=== PATIENT | male | born 1955 | race American Indian/Alaskan Native ===

== ENCOUNTER 2019-11-08 22:45 | Emergency (ER) | payer MEDICARE ==
[2019-11-09 01:07] LABS: Alanine Aminotransferase 30 units/L (7-56); Albumin 5.1 g/dL (3.9-5); BUN/Creatinine Ratio 23; Blood Urea Nitrogen 21 mg/dL (9-20); Calcium 10.3 mg/dL (8.4-10.2); Hemolysis Index 21
[2019-11-09 01:09] LABS: Basophils # (Auto) 0.1 K/mm3 (0.0-0.1); Basophils % (Auto) 1.7 % (0.0-1.8); Hematocrit 52.2 % (35.5-45.6); Hemoglobin 17.7 gm/dl (11.8-15.2); Lymphocytes # (Auto) 0.7 K/mm3 (1.2-5.4); Lymphocytes % (Auto) 7.7 % (13.4-35.0); Mean Corpuscular HGB Conc 34 % (32-34); Mean Corpuscular Volume 104 fl (84-94); Monocytes # (Auto) 0.4 K/mm3 (0.0-0.8); Monocytes % (Auto) 5.3 % (0.0-7.3); Platelet Count 218 K/mm3 (140-440); Red Blood Count 5.04 M/mm3 (3.65-5.03); Red Cell Distribution Width 14.9 % (13.2-15.2)
[2019-11-09] MEDS ORDERED: SODIUM CHLORIDE 0.9% 1000 ML 2,000 ML IV ONE (01:30)
[2019-11-09] MEDS ORDERED: diphenhydrAMINE 50 MG/ML VIAL IV ONE (01:30)
[2019-11-09] MEDS ORDERED: METOCLOPRAMIDE 10 MG/2 ML INJ IV ONE (01:30)
[2019-11-09] MEDS ORDERED: ACETAMINOPHEN 325 MG/10.15 ML ORAL LIQD UNIT DOSE PO ONE (01:31)
--- NOTE | 2019-11-09 01:32 | Emergency Department Report ---
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 He has a history of possible bullous emphysema. A few years ago, he had an abdominal surgery performed at [place], for an incidental intestinal abnormality identified at this facility on a CAT scan in 2014. He also reports that he had some sort of thoracic procedure in the distant past to help his lungs "to move better." He presents to the ER today with multiple complaints. He typically follows at the [facility]. He presents to the ER with a complaint of multiple episodes of nonbloody, nonbilious nausea vomiting and emesis, which started a few days ago, decreased bowel movements, he believes that he may have had black tarry stools yesterday, but is not sure, decrease in bowel movements, fever at home to 101 degrees, shortness of breath, and syncope/loss of consciousness. His first episode of loss of consciousness was 1 week ago. He does not remember what he was doing during the episode of loss of consciousness. He reports that he had a loss of consciousness yesterday, while in the shower. He denies recent travel, surgeries, oral contraceptive use, posterior leg pain or swelling. There is no complaint of neck pain, chest pain, focal extremity weakness or numbness. He also feels like his urine is "off." He feels like his symptoms are worsened when he attempts to eat or drink. -: Gradual, days(s) Location: abdomen Radiation: non-radiation Quality: aching Consistency: other Improves with: eating, rest - Related Data Home Medications Medication Instructions Recorded Confirmed Last Taken Docusate Sodium [Colace CAP] 100 mg PO BID 11/14/14 11/14/14 11/14/14 100 mg Esomeprazole Magnesium [NexIUM] 20 mg PO DAILY 11/14/14 11/14/14 11/14/14 20 mg Ferrous Sulfate [Ferosul] 325 mg PO DAILY 11/14/14 11/14/14 11/14/14 325 mg LORazepam 0.5 mg PO Q8HR PRN 11/14/14 11/14/14 11/14/14 0.5mg Previous Rx's Medication Instructions Recorded Last Taken Type Promethazine [Phenergan] 25 mg PO Q6H PRN #20 tablet 11/15/14 Unknown Rx Dicyclomine [Bentyl] 20 mg PO QID #30 tablet 03/03/16 Unknown Rx Promethazine [Phenergan TAB] 25 mg PO Q6HR PRN #20 tab 03/03/16 Unknown Rx Ondansetron [Zofran TAB] 4 mg PO Q8HR PRN #20 tablet 10/13/16 Unknown Rx Famotidine [Pepcid] 20 mg PO BID #60 tablet 11/09/19 Unknown Rx Ladan Root [Ladan] 250 mg PO QID PRN #30 capsule 11/09/19 Unknown Rx Metoclopramide [Reglan] 10 mg PO QID PRN #30 tablet 11/09/19 Unknown Rx Multivitamin with Folic Acid [[facility] 400 mcg PO QDAY #30 tablet 11/09/19 Unknown Rx One Daily Essential Tablet] Promethazine [Phenergan SUPPOS] 50 mg CO Q6H PRN #15 supp.rect 11/09/19 Unknown Rx Allergies Allergy/AdvReac Type Severity Reaction Status Date / Time No Known Allergies Allergy Unverified 11/14/14 17:06 ED Review of Systems ROS: Stated complaint: FEVER,N/V/D Other details as noted in HPI Constitutional: fever, malaise, weakness Eyes: denies: eye discharge ENT: denies: dental pain Respiratory: shortness of breath Cardiovascular: syncope Gastrointestinal: abdominal pain, nausea, vomiting, diarrhea, melena Genitourinary: other Musculoskeletal: as per HPI Skin: as per HPI Neurological: as per HPI, weakness Psychiatric: as per HPI Hematological/Lymphatic: as per HPI. denies: easy bleeding ED Past Medical Hx - Past Medical History Previous Medical History?: Yes Hx of Cancer: Yes (Lung and Bowel) Additional medical history: stomach and left lung Cancer (unknown); surgery 1 year ago to remove cancer - Surgical History Past Surgical History?: Yes Additional Surgical History: partial left pneumonectomy, partial gastrectomy - Social History Smoking Status: Never Smoker Substance Use Type: Marijuana - Medications Home Medications: Home Medications Medication Instructions Recorded Confirmed Last Taken Type Docusate Sodium [Colace CAP] 100 mg PO BID 11/14/14 11/14/14 11/14/14 History 100 mg Esomeprazole Magnesium [NexIUM] 20 mg PO DAILY 11/14/14 11/14/14 11/14/14 Hist ory 20 mg Ferrous Sulfate [Ferosul] 325 mg PO DAILY 11/14/14 11/14/14 11/14/14 History 325 mg LORazepam 0.5 mg PO Q8HR PRN 11/14/14 11/14/14 11/14/14 History 0.5mg Promethazine [Phenergan] 25 mg PO Q6H PRN #20 tablet 11/15/14 Unknown Rx Dicyclomine [Bentyl] 20 mg PO QID #30 tablet 03/03/16 Unknown Rx Promethazine [Phenergan TAB] 25 mg PO Q6HR PRN #20 tab 03/03/16 Unknown Rx Ondansetron [Zofran TAB] 4 mg PO Q8HR PRN #20 tablet 10/13/16 Unknown Rx Famotidine [Pepcid] 20 mg PO BID #60 tablet 11/09/19 Unknown Rx Ladan Root [Ladan] 250 mg PO QID PRN #30 capsule 11/09/19 Unknown Rx Metoclopramide [Reglan] 10 mg PO QID PRN #30 tablet 11/09/19 Unknown Rx Multivitamin with Folic Acid [[facility] 400 mcg PO QDAY #30 tablet 11/09/19 Unknown Rx One Daily Essential Tablet] Promethazine [Phenergan SUPPOS] 50 mg CO Q6H PRN #15 supp.rect 11/09/19 Unknown Rx ED Physical Exam - General Limitations: No Limitations General appearance: alert, anxious - Head Head exam: Present: atraumatic, normocephalic - Eye Eye exam: Present: normal appearance, PERRL, EOMI, other (Visual acuity intact to finger counting and color perception at a close distance). Absent: nystagmus - ENT ENT exam: Present: normal exam, normal orophraynx, mucous membranes moist, normal external ear exam - Neck Neck exam: Present: normal inspection, full ROM. Absent: tenderness, meningismus - Respiratory Respiratory exam: Present: normal lung sounds bilaterally. Absent: respiratory distress - Cardiovascular Cardiovascular Exam: Present: normal rhythm, tachycardia, normal heart sounds. Absent: systolic murmur, diastolic murmur, rubs, gallop - GI/Abdominal GI/Abdominal exam: Present: soft, tenderness, other (Minimal tenderness noted in the left lower quadrant, without rebound, guarding or peritoneal sign). Absent: distended, guarding, rebound, rigid, pulsatile mass - Rectal Rectal exam: Present: normal inspection, normal rectal tone, heme (-) stool, other (Chaperoned by nurse she barker). Absent: heme (+) stool, black stool, bloody stool, fecal impaction, hemorrhoids - exam: Present: normal inspection, other (Chaperoned by nurse she barker). Absent: testicular tenderness External exam: Present: normal external exam, other (There is normal testicular lie. There is normal cremasteric reflex. There is no testicular tenderness. There is no testicular swelling) - Extremities Exam Extremities exam: Present: normal inspection, full ROM, other (2+ pulses noted in the bilateral upper and lower extremities. There is no palpable cord. negative Homans sign. Muscular compartments are soft. The pelvis is stable.). Absent: pedal edema, joint swelling, calf tenderness - Back Exam Back exam: Present: normal inspection, full ROM. Absent: tenderness, CVA tenderness (R), CVA tenderness (L), paraspinal tenderness, vertebral tenderness - Neurological Exam Neurological exam: Present: alert, normal gait, other (There is no facial droop. The tongue is midline. Extraocular movements are intact bilaterally. There is 5 out of 5 strength in bilateral upper and lower extremities. Sensation is intact to light touch bilateral upper and lower extremities. There is no past- pointing. There is no pronator drift. There is a normal gait.) - Psychiatric Psychiatric exam: Present: anxious - Skin Skin exam: Present: warm, dry, intact, normal color. Absent: rash ED Course Vital Signs 11/08/19 11/09/19 11/09/19 23:25 01:27 01:30 Temperature 98.9 F Pulse Rate 104 H 72 Respiratory 18 29 H Rate Blood Pressure 138/93 142/87 Blood Pressure [Left] O2 Sat by Pulse 100 100 95 Oximetry 11/09/19 11/09/19 11/09/19 01:46 01:49 02:00 Temperature 98.5 F Pulse Rate 77 90 92 H Respiratory 24 23 21 Rate Blood Pressure 142/87 153/93 Blood Pressure 161/91 [Left] O2 Sat by Pulse 100 98 100 Oximetry 11/09/19 11/09/19 11/09/19 02:16 02:30 02:46 Temperature Pulse Rate 72 85 84 Respiratory 41 H 15 14 Rate Blood Pressure 153/93 139/88 139/88 Blood Pressure [Left] O2 Sat by Pulse 100 94 98 Oximetry 11/09/19 11/09/19 11/09/19 03:00 03:30 03:46 Temperature Pulse Rate 79 106 H 77 Respiratory 14 17 18 Rate Blood Pressure 127/80 127/80 111/89 Blood Pressure [Left] O2 Sat by Pulse 99 91 97 Oximetry 11/09/19 04:00 Temperature Pulse Rate 80 Respiratory 15 Rate Blood Pressure 149/86 Blood Pressure [Left] O2 Sat by Pulse 99 Oximetry - Reevaluation(s) Reevaluation #1: 11/09/19 02:42 Differential diagnosis, including but not limited to: Colitis, obstruction, diverticulitis, volvulus, cyclic vomiting syndrome, cannabinoid hyperemesis syndrome, dehydration, orthostasis, vagal event, pneumonia, pulmonary embolism, urinary tract infection Assessment and plan: 63-year-old gentleman with multiple complaints. In the emergency room, he is afebrile with reassuring vital signs. Rectal exam unremarkable, genital exam unremarkable, neurologic exam unremarkable, minimally tender in the left lower quadrant. He is very anxious. We have not witnessed any active vomiting. Screening laboratory studies are fairly unremarkable. EKG is fairly unremarkable except for left ventricular hypertrophy. Plain films of the chest and abdomen are fairly unremarkable. He is low risk by Wells criteria, not tachycardic at this time, not hypoxic, although given his complaint of syncope, shortness of breath, fever, d-dimer sent, elevated. CT scan of the chest will be obtained. CT scan of the abdomen pelvis will be obtained. He also complains of a headache which was bitemporal, not sudden or thunderclap in nature, not maximal in intensity. Given complaints of headache and syncope, noncontrast CT scan of the brain will be obtained. He does not describe the headache as the worst headache of his life. We will treat his symptoms. We will reassess once his data points have resulted. Reevaluation #2: 11/09/19 04:31 Patient is observed for hours without clinical deterioration. He has not vomited. He has not lost consciousness. CT scan of the brain, abdomen pelvis negative for emergent pathology, enteritis is suggested on CT scan abdomen pelvis. Urine toxicology screen does demonstrate the presence of marijuana metabolites. CT scan of the chest is pending at this time. He was given Carafate which he was reportedly able to tolerate Reevaluation #3: 11/09/19 04:36 CT scan of the chest is negative for acute disease ED Medical Decision Making - Lab Data Result diagrams: 11/09/19 00:25 11/09/19 00:25 Vital Signs 11/08/19 11/09/19 11/09/19 23:25 01:27 01:30 Temperature 98.9 F Pulse Rate 104 H 72 Respiratory 18 29 H Rate Blood Pressure 138/93 142/87 Blood Pressure [Left] O2 Sat by Pulse 100 100 95 Oximetry 11/09/19 11/09/19 11/09/19 01:46 01:49 02:00 Temperature 98.5 F Pulse Rate 77 90 92 H Respiratory 24 23 21 Rate Blood Pressure 142/87 153/93 Blood Pressure 161/91 [Left] O2 Sat by Pulse 100 98 100 Oximetry 11/09/19 11/09/19 02:16 02:30 Temperature Pulse Rate 72 85 Respiratory 41 H 15 Rate Blood Pressure 153/93 139/88 Blood Pressure [Left] O2 Sat by Pulse 100 94 Oximetry Lab Results 11/08/19 11/09/19 11/09/19 Range/Units 01:31 00:25 00:25 WBC 8.4 (4.5-11.0) K/mm3 RBC 5.04 H (3.65-5.03) M/mm3 Hgb 17.7 H (11.8-15.2) gm/dl Hct 52.2 H (35.5-45.6) % MCV 104 H (84-94) fl MCH 35 H (28-32) pg MCHC 34 (32-34) % RDW 14.9 (13.2-15.2) % Plt Count 218 (140-440) K/mm3 Lymph % (Auto) 7.7 L (13.4-35.0) % [place] % (Auto) 5.3 (0.0-7.3) % Eos % (Auto) 0.0 (0.0-4.3) % Baso % (Auto) 1.7 (0.0-1.8) % Lymph # 0.7 L (1.2-5.4) K/mm3 [place] # 0.4 (0.0-0.8) K/mm3 Eos # 0.0 (0.0-0.4) K/mm3 Baso # 0.1 (0.0-0.1) K/mm3 Seg Neutrophils % 85.3 H (40.0-70.0) % Seg Neutrophils # 7.2 (1.8-7.7) K/mm3 PT (12.2-14.9) Sec. INR (0.87-1.13) APTT (24.2-36.6) Sec. D-Dimer (0-234) ng/mlDDU Sodium 141 (137-145) mmol/L Potassium 4.7 (3.6-5.0) mmol/L Chloride 97.2 L (98-107) mmol/L Carbon Dioxide 21 L (22-30) mmol/L Anion Gap 28 mmol/L BUN 21 H (9-20) mg/dL Creatinine 0.9 (0.8-1.5) mg/dL Estimated GFR > 60 ml/min BUN/Creatinine Ratio 23 % Glucose 109 H (75-100) mg/dL Calcium 10.3 H (8.4-10.2) mg/dL Total Bilirubin 1.30 H (0.1-1.2) mg/dL AST 49 H (5-40) units/L ALT 30 (7-56) units/L Alkaline Phosphatase 66 (35-129) units/L Total Protein 7.6 (6.3-8.2) g/dL Albumin 5.1 H (3.9-5) g/dL Albumin/Globulin Ratio 2.0 % Lipase 15 (13-60) units/L Urine Color Yellow (Yellow) Urine Turbidity Clear (Clear) Urine pH 5.0 (5.0-7.0) Ur Specific Keeler 1.019 (1.003-1.030) Urine Protein <15 mg/dl (Negative) mg/dL Urine Glucose (UA) Neg (Negative) mg/dL Urine Ketones 80 (Negative) mg/dL Urine Blood Neg (Negative) Urine Nitrite Neg (Negative) Urine Bilirubin Neg (Negative) Urine Urobilinogen < 2.0 (<2.0) mg/dL Ur Leukocyte Esterase Neg (Negative) Urine WBC (Auto) 1.0 (0.0-6.0) /HPF Urine RBC (Auto) 2.0 (0.0-6.0) /HPF U Epithel Cells (Auto) < 1.0 (0-13.0) /HPF Urine Mucus Few /HPF Urine Opiates Screen Urine Methadone Screen Ur Barbiturates Screen Ur Phencyclidine Scrn Ur Amphetamines Screen U Benzodiazepines Scrn Urine Cocaine Screen U Marijuana (THC) Screen Drugs of Abuse Note 11/09/19 11/09/19 Range/Units 01:31 01:42 WBC (4.5-11.0) K/mm3 RBC (3.65-5.03) M/mm3 Hgb (11.8-15.2) gm/dl Hct (35.5-45.6) % MCV (84-94) fl MCH (28-32) pg MCHC (32-34) % RDW (13.2-15.2) % Plt Count (140-440) K/mm3 Lymph % (Auto) (13.4-35.0) % [place] % (Auto) (0.0-7.3) % Eos % (Auto) (0.0-4.3) % Baso % (Auto) (0.0-1.8) % Lymph # (1.2-5.4) K/mm3 [place] # (0.0-0.8) K/mm3 Eos # (0.0-0.4) K/mm3 Baso # (0.0-0.1) K/mm3 Seg Neutrophils % (40.0-70.0) % Seg Neutrophils # (1.8-7.7) K/mm3 PT 12.6 (12.2-14.9) Sec. INR 0.93 (0.87-1.13) APTT 27.5 (24.2-36.6) Sec. D-Dimer 270.71 H (0-234) ng/mlDDU Sodium (137-145) mmol/L Potassium (3.6-5.0) mmol/L Chloride (98-107) mmol/L Carbon Dioxide (22-30) mmol/L Anion Gap mmol/L BUN (9-20) mg/dL Creatinine (0.8-1.5) mg/dL Estimated GFR ml/min BUN/Creatinine Ratio % Glucose (75-100) mg/dL Calcium (8.4-10.2) mg/dL Total Bilirubin (0.1-1.2) mg/dL AST (5-40) units/L ALT (7-56) units/L Alkaline Phosphatase (35-129) units/L Total Protein (6.3-8.2) g/dL Albumin (3.9-5) g/dL Albumin/Globulin Ratio % Lipase (13-60) units/L Urine Color (Yellow) Urine Turbidity (Clear) Urine pH (5.0-7.0) Ur Specific Keeler (1.003-1.030) Urine Protein (Negative) mg/dL Urine Glucose (UA) (Negative) mg/dL Urine Ketones (Negative) mg/dL Urine Blood (Negative) Urine Nitrite (Negative) Urine Bilirubin (Negative) Urine Urobilinogen (<2.0) mg/dL Ur Leukocyte Esterase (Negative) Urine WBC (Auto) (0.0-6.0) /HPF Urine RBC (Auto) (0.0-6.0) /HPF U Epithel Cells (Auto) (0-13.0) /HPF Urine Mucus /HPF Urine Opiates Screen Presumptive negative Urine Methadone Screen Presumptive negative Ur Barbiturates Screen Presumptive negative Ur Phencyclidine Scrn Presumptive negative Ur Amphetamines Screen Presumptive negative U Benzodiazepines Scrn Presumptive negative Urine Cocaine Screen Presumptive negative U Marijuana (THC) Screen Presumptive positive Drugs of Abuse Note Disclamer - EKG Data -: EKG Interpreted by Hi EKG shows normal: sinus rhythm Rate: normal - EKG Data 11/09/19 02:44 Sinus rhythm, 80 bpm, normal axis, left ventricular hypertrophy, QTC prolonged, abnormal EKG, there is no prior for comparison, this is not a STEMI - Radiology Data Radiology results: report reviewed, image reviewed Print Report Referring Physician: CAL SWANN Patient Name: EDER GIMENEZ Date of : 1955 Sex: Male Report Date: 2019-11-09 Report Status: Finalized Findings [facility] [address] [place] [address] XRay Report Signed Patient: EDER GIMENEZ MR#: [id number] : 1955 Acct:[id number] Age/Sex: 63 / M ADM Date: 11/08/19 Loc: ED Attending Dr: Ordering Physician: CAL SWANN MD Date of Service: 11/09/19 Procedure(s): XR abd series w cxr 1V Accession Number(s): [id number] cc: ACL SWANN MD Fluoro Time In Minutes: ABDOMINAL SERIES WITH CHEST X-RAY, 3 VIEWS INDICATION / CLINICAL INFORMATION: sob fever llq abd pain. COMPARISON: 10/13/2016 FINDINGS: Accompanying PA view of the chest shows the lungs to be hyperinflated with prominent bullous disease throughout the right upper lobe. No acute superimposed pulmonary disease noted. Bowel gas pattern is grossly normal. No free air. Surgical sutures are seen in the left upper quadrant. No acute osseous abnormality. IMPRESSION: 1. No acute finding within the abdomen or chest. Signer Name: Jany Martinez MD Signed: 11/09/2019 2:09 AM Workstation Name: [email or web address] Transcribed By: JR Dictated By: Jany Martinez MD Electronically Authenticated By: Jany Martinez MD Signed Date/Time: 11/09/19208 DD/ 020 Print Report Referring Physician: RAMOS ZUÑIGA Patient Name: EDER GIMENEZ Date of : 1955 Sex: Male Report Date: 2016-03-03 Report Status: [place] [address] Cat Scan Report Signed Patient: EDER GIMENEZ MR#: [id number] : 1955 Acct:[id number] Age/Sex: 60 / M ADM Date: 03/03/16 Loc: ED Attending Dr: Ordering Physician: RAMOS ZUÑIGA MD Date of Service: 03/03/16 Procedure(s): CT abdomen pelvis w con Accession Number(s): [id number] cc: RAMOS ZUÑIGA MD CT ABDOMEN PELVIS WITH CONTRAST History: Abdominal pain, gastric cancer. Comparison: 11/15/14. Technique: Helical CT following IV and oral contrast. Sagittal and coronal reformatted images. Findings: An approximate 10 cm mass has been removed from the mesentery since 11/15/14 exam, correlate with history. There is no obvious recurrent mass in the abdomen or pelvis. No adeno caroline or solid organ lesions suspicious for metastasis is appreciated. There is a mild degree of pelvic ascites. A few small bowel loops in the left abdomen appear edematous. This could represent an enteritis. There is no evidence for obstruction, pneumatosis or free air. Normal appendix. Scattered tiny liver cysts and right hepatic lobe cavernous hemangioma are unchanged. The biliary system, pancreas, spleen, kidneys and adrenal glands remain unremarkable. Solitary bilateral renal cysts measuring up to 2 cm are unchanged. The aorta is normal caliber. The IVC and portal venous system are patent. Normal heart size. Clear lung bases. No suspicious bony lesion is appreciated. Impression: Correl ate for a mild enteritis. See above. Scattered liver cysts and right hepatic lobe cavernous hemangioma, stable. Renal cysts, stable. Surgical changes as described. No evidence for recurrent or metastatic disease. Transcribed By: TTR Dictated By: RAZIA JACK JR, MD Electronically Authenticated By: RAZIA JACK JR, MD Signed Date/Time: 03/03/16 1215 DD/ 1212 TD/TT: 03/03/16 1215 Visualized lower thorax: No significant abnormality. Liver: There is a probable hemangioma in the posterior segment of the RIGHT lobe of liver measuring 2.6 cm. Spleen: Normal size and attenuation. Gallbladder and biliary system: Normal. Pancreas: Normal. Adrenals: Normal. Kidneys: There are cysts in the kidneys. There is NO nephrolithiasis or obstructive uropathy. GI tract: The stomach is unremarkable. There is a dilated portion of the mid small bowel measuring 9.3 x 9.7 cm. There is NO mechanical obstruction. This could be focal dilatation associated with prior surgery. However, possibility of intraluminal tumor cannot be excluded. Small bowel follow-through examination may be helpful. The colon is unremarkable. There is NO colonic obstruction or mass, colitis or diverticulitis. The appendix is NORMAL. Lymph nodes and mesentery: Normal. Vasculature: Normal. Bladder: Normal. Reproductive organs: Normal. Peritoneum: No free fluid. Musculoskeletal structures: No significant abnormality. IMPRESSION: THERE IS A PROBABLE HEMANGIOMA IN THE POSTERIOR SEGMENT OF THE RIGHT LOBE OF LIVER MEASURING 2.6 CM. THERE ARE CYSTS IN THE KIDNEYS. THERE IS NO NEPHROLITHIASIS OR OBSTRUCTIVE UROPATHY. THERE IS A DILATED PORTION OF THE MID SMALL BOWEL MEASURING 9.3 X 9.7 CM. THERE IS NO MECHANICAL OBSTRUCTION. THIS COULD BE FOCAL DILATATION ASSOCIATED WITH PRIOR SURGERY. HOWEVER, POSSIBILITY OF INTRALUMINAL TUMOR CANNOT BE EXCLUDED. SMALL BOWEL FOLLOW-THROUGH EXAMINATION MAY BE HELPFUL. THE COLON IS UNREMARKABLE. THERE IS NO COLONIC OBSTRUCTION OR MASS, COLITIS OR DIVERTICULITIS. THE APPENDIX IS NORMAL. THERE IS NO ASCITES, FREE AIR, ABSCESS OR ADENOPATHY. Print Report Referring Physician: CAL SWANN Patient Name: EDER GIMENEZ Date of : 1955 Sex: Male Report Date: 2019-11-09 Report Status: Finalized Findings [facility] [address] [id number] Cat Scan Report Signed Patient: EDER GIMENEZ MR#: [id number] : 1955 Acct:[id number] Age/Sex: 63 / M ADM Date: 11/08/19 Loc: ED Attending Dr: Ordering Physician: CAL SWANN MD Date of Service: 11/09/19 Procedure(s): CT abdomen pelvis w con Accession Number(s): [id number] cc: CAL SWANN MD CT abdomen pelvis w con INDICATION / CLINICAL INFORMATION: MAIN: abd pain n/v, syncope, fever. 100 ml Omnipaque 350. TECHNIQUE: Axial CT imaging of abdomen and pelvis was obtained IV contrast. Coronal and sagittal reformatted imaging obtained and reviewed. All CT scans at this location are performed using CT dose reduction for ALARA by means of automated exposure control. COMPAR DESIREE: Prior CT, 03/03/2016 FINDINGS: CT abdomen with contrast demonstrates a few small simple cysts scattered throughout the liver. The liver is otherwise unremarkable. Spleen, pancreas, gallbladder, and adrenal glands appear unremarkable. There are a few small simple cyst in both kidneys. Otherwise the kidneys are unremarkable. No solid mass or hydronephrosis. There is mild dilatation of the common bile duct measuring 8 mm. No definite acute obstructive lesion identified. CT pelvis with contrast demonstrates several slightly prominent fluid-filled loops of small bowel. This is nonspecific but could be related to enteritis if clinical symptoms correlate. No focal mass, free fluid, or inflammatory changes noted. A normal appendix is present. Prostate gland is mildly enlarged. Visualized lung bases bases are clear. No acute significant osseous abnormality.. IMPRESSION: 1. Possible mild enteritis. Please correlate with clinical symptoms/presentation. 2. Mild dilatation of the common bile duct without definitive obstructing lesion identified. Please correlate with liver enzymes. Signer Name: Jany Martinez MD Signed: 11/09/2019 4:25 AM Workstation Name: [employer] Transcribed By: JR Dictated By: Jayn Martinez MD Electronically Authenticated By: Jany Martinez MD Signed Date/Time: 11/09/195 DD/ 3 Print Report Referring Physician: CAL SWANN Patient Name: EDER GIMENEZ Date of : 1955 Sex: Male Report Date: 2019-11-09 Report Status: [place] [address] Cat Scan Report Signed Patient: EDER GIMENEZ MR#: [id number] : 1955 Acct:[id number] Age/Sex: 63 / M ADM Date: 11/08/19 Loc: ED Attending Dr: Ordering Physician: CAL SWANN MD Date of Service: 11/09/19 Procedure(s): CT head/brain wo con Accession Number(s): [id number] cc: CAL SWANN MD CT head/brain wo con INDICATION / CLINICAL INFORMATION: MAIN: headache, syncope. TECHNIQUE: Axial CT imaging of the brain was obtained without contrast. Coronal and sagittal reformatted imaging obtained and reviewed. All CT scans at this location are performed using CT dose reduction for ALARA by means of automated exposure control. COMPARISON: None available. FINDINGS: No intracranial hemorrhage, mass, or midline shift. No extra-axial fluid collection or suggestion of acute territorial infarction. Ventricular system and basilar cisterns are unremarkable. Mild cerebral atrophy is present. Visualized parana ally sinuses and mastoid air cells are well aerated and clear. No calvarial fracture identified. IMPRESSION: 1. No acute intracranial abnormality. Signer Name: Jany Martinez MD Signed: 11/09/2019 4:10 AM Workstation Name: [id number] Transcribed By: JR Dictated By: Jany Martinez MD Electronically Authenticated By: Jany Martinez MD Signed Date/Time: 11/09/19409 DD/ 7 Critical care attestation.: If time is entered above; I have spent that time in minutes in the direct care of this critically ill patient, excluding procedure time. ED Disposition Clinical Impression: History of syncope, History of nausea and vomiting, History of headache, History of shortness of breath, History of abdominal pain, History of marijuana use Disposition: - TO HOME OR SELFCARE Is pt being admited?: No Does the pt Need Aspirin: No Condition: Stable Additional Instructions: Avoid consumption of marijuana, alcohol, and tobacco products. Do not drive or operate motor vehicles until her primary care doctor or jewel staker clears the patient to do so. Advance diet as tolerated, drink plenty of fluids, take the pain medication, nausea medications as needed and directed. Do not take metformin medication for the next 2 days, if patient takes this medication. Please follow-up with your primary care doctor or jewel staker for loss of consciousness within the next 3 to 5 days. Please follow-up with a primary care doctor for complaint of shortness of breath, fever, abdominal pain, nausea/vomiting within the next 3 to 5 days. Symptoms are most likely coming from viral syndrome, possibly worsened by concomitant marijuana use/exposure. Recommend that patient discontinue exposure to marijuana or stop using marijuana as this is likely a significant contributing factor to symptoms. For symptoms of nausea and vomiting, patient may use ladan tablets, alternating with Reglan prescription as directed. For intractable nausea/vomiting, not relieved by the aforementioned oral medications, patient may use the Phenergan suppository. If using the suppository, wait at least 1 hour after taking Reglan medication before administering suppository. Take the prescribed pain medications as needed and directed Referrals: GERTRUDE COLON MD [Primary Care Provider] - 3-5 Days SANDY REY MD [Staff Physician] - 3-5 Days [facility] [Provider Group] - 3-5 Days [facility] [Provider Group] - 3-5 Days
[2019-11-09 01:53] LABS: Bilirubin,Urine NEG (Negative); Blood,Urine NEG (Negative); Color,Urine Yellow (Yellow); Mucus,Urine FEW /HPF; Protein,Urine <15 mg/dL mg/dL (Negative); Urobilinogen,Urine < 2.0 mg/dL (<2.0)
[2019-11-09 02:00] LABS: Amphetamine Screen,Urine PRESUMPTIVE NEGATIVE; Benzodiazepines Screen,Urine PRESUMPTIVE NEGATIVE; Cocaine Screen,Urine PRESUMPTIVE NEGATIVE; Methadone Screen,Urine PRESUMPTIVE NEGATIVE; Opiate Screen,Urine PRESUMPTIVE NEGATIVE
[2019-11-09 02:14] LABS: Cannabinoid Screen,Urine PRESUMPTIVE POSITIVE
--- NOTE | 2019-11-09 02:14 | XRay Report ---
ABDOMINAL SERIES WITH CHEST X-RAY, 3 VIEWS INDICATION / CLINICAL INFORMATION: sob fever llq abd pain. COMPARISON: 10/13/2016 FINDINGS: Accompanying PA view of the chest shows the lungs to be hyperinflated with prominent bullous disease throughout the right upper lobe. No acute superimposed pulmonary disease noted. Bowel gas pattern is grossly normal. No free air. Surgical sutures are seen in the left upper quadran t. No acute osseous abnormality. IMPRESSION: 1. No acute finding within the abdomen or chest. Signer Name: Jany Martinez MD Signed: 11/09/2019 2:09 AM Workstation Name: [id number]
[2019-11-09 02:17] LABS: INR 0.93 (0.87-1.13); Partial Thromboplastin Time 27.5 Sec. (24.2-36.6)
[2019-11-09] MEDS ORDERED: SUCRALFATE 1 GM/10 ML ORAL LIQD ONE (03:45)
[2019-11-09] MEDS ORDERED: SUCRALFATE 1 GM/10 ML ORAL LIQD PO ONE (04:00)
[2019-11-09 04:08] VITALS: BP 149/86
--- NOTE | 2019-11-09 04:15 | Cat Scan Report ---
CT head/brain wo con INDICATION / CLINICAL INFORMATION: MAIN: headache, syncope. TECHNIQUE: Axial CT imaging of the brain was obtained without contrast. Coronal and sagittal reformatted imaging obtained and reviewed. All CT scans at this location are performed using CT dose reduction for ALAR A by means of automated exposure control. COMPARISON: None available. FINDINGS: No intracranial hemorrhage, mass, or midline shift. No extra-axial fluid collection or suggestion of acute territorial infarction. Ventricular system and basilar cisterns are unremarkable. Mild cerebral atrophy is present. Visualized paranasal sinuses and mastoid air cells are well aerated and clear. No calvarial fracture identified. IMPRESSION: 1. No acute intracranial abnormality. Signer Name: Jany Martinez MD Signed: 11/09/2019 4:10 AM Workstation Name: [id number]
--- NOTE | 2019-11-09 04:29 | Cat Scan Report ---
CT abdomen pelvis w con INDICATION / CLINICAL INFORMATION: MAIN: abd pain n/v, syncope, fever. 100 ml Omnipaque 350. TECHNIQUE: Axial CT imaging of abdomen and pelvis was obtained IV contrast. Coronal and sagittal reformatted una ging obtained and reviewed. All CT scans at this location are performed using CT dose reduction for ALARA by means of automated exposure control. COMPARISON: Prior CT, 03/03/2016 FINDINGS: CT abdomen with contrast demonstrates a few small simple cysts scattered throughout the liver. The li bernadette is otherwise unremarkable. Spleen, pancreas, gallbladder, and adrenal glands appear unremarkable. There are a few small simple cyst in both kidneys. Otherwise the kidneys are unremarkable. No solid mass or hydronephrosis. There is mild dilatation of the common bile duct measuring 8 mm. No definite acute obstructive lesion identified. CT pelvis with contrast demonstrates several slightly prominent fluid-filled loops of small bowel. Th is is nonspecific but could be related to enteritis if clinical symptoms correlate. No focal mass, fr ee fluid, or inflammatory changes noted. A normal appendix is present. Prostate gland is mildly enlar ged. Visualized lung bases bases are clear. No acute significant osseous abnormality.. IMPRESSION: 1. Possible mild enteritis. Please correlate with clinical symptoms/presentation. 2. Mild dilatation of the common bile duct without definitive obstructing lesion identified. Please c orrelate with liver enzymes. Signer Name: Jany Martinez MD Signed: 11/09/2019 4:25 AM Workstation Name: [email or web address]
--- NOTE | 2019-11-09 04:32 | Cat Scan Report ---
CTA CHEST WITH IV CONTRAST INDICATION / CLINICAL INFORMATION: MAIN: Syncope, fever, sob, + d dimer. 100 ML OMNIPAQUE 350. TECHNIQUE: Axial CT images were obtained through the chest after injection of 100 mL IV contrast. 3 plane MIP an d/or 3D reconstructions were produced. All CT scans at this location are performed using CT dose redu ction for [facility] by means of automated exposure control. COMPARISON: Abdomen/chest radiographs from earlier today. FINDINGS: PULMONARY ARTERIES: No pulmonary emboli. THORACIC AORTA: No significant abnormality. HEART: No significant abnormality. CORONARY ARTERIES: No significant calcification. PLEURA: No pleural effusion. No pneumothorax. LYMPH NODES: No significant adenopathy. LUNGS: There is significant bullous disease throughout the right upper lobe. No acute pulmonary or pl eural disease identified. No evidence of pneumonia or mass. ADDITIONAL FINDINGS: None. UPPER ABDOMEN: No acute findings. SKELETAL STRUCTURES: No significant osseous abnormality. IMPRESSION: 1. No CT evidence for pulmonary embolism. 2. Significant bullous disease throughout the right upper lobe. No acute pulmonary or pleural disease . Signer Name: Jany Martinez MD Signed: 11/09/2019 4:28 AM Workstation Name: [id number]
== END 2019-11-09 04:53 | disposition home or self-care (01) ==
LOC: ED 22:45
DX: R55 Syncope and collapse (principal); R11.2 Nausea with vomiting, unspecified; R06.02 Shortness of breath; F12.10 Cannabis abuse, uncomplicated; R10.9 Unspecified abdominal pain; Z98.890 Other specified postprocedural states; Z79.899 Other long term (current) drug therapy; Z85.118 Personal history of other malignant neoplasm of bronchus and lung
CPT/HCPCS: 36415; 70450; 71275; 74022; 74177; 80053; 80307; 81001; 82271; 82550; 83690; 83735; 85025; 85379; 85610; 85730; 93005; 93010; 96361; 96374; 96375; 99284; J1200; J2765; J7030; Q9967

== ENCOUNTER 2021-08-22 11:59 | Emergency (ER) | payer MEDICARE, MEDICAID ==
[2021-08-22] MEDS ORDERED: guaiFENesin DM 200/20 MG ORAL LIQD 10 ML PO ONE (15:01)
[2021-08-22] MEDS ORDERED: HYDROcodone/ACETAMINOPHEN 5-325 MG TAB PO ONE (15:01)
[2021-08-22 15:14] VITALS: BP 144/83
[2021-08-22 15:21] LABS: Bilirubin,Urine NEG (Negative); Blood,Urine NEG (Negative); Color,Urine Yellow (Yellow); Mucus,Urine 2+ /HPF; Protein,Urine <15 mg/dL mg/dL (Negative)
--- NOTE | 2021-08-22 15:27 | XRay Report ---
XR chest routine 2V INDICATION / CLINICAL INFORMATION: SOB, cough, CP. COMPARISON: 11/09/2019 FINDINGS: SUPPORT DEVICES: None. HEART /PULMONARY VASCULATURE: No significant abnormality. LUNGS / PLEURA: Severe bullous disease with postsurgical changes of the right upper hemithorax. Patch y airspace consolidation of the left lower lobe. No pneumothorax. ADDITIONAL FINDINGS: No significant additional findings. IMPRESSION: Left lower lobe pneumonia. Signer Name: Ulisses Batres MD Signed: 08/22/2021 3:23 PM Workstation Name: [id number]
[2021-08-22] MEDS ORDERED: cefTRIAXone/NS 2 GM/100 ML 2 GM/100 ML BAG IV ONE (15:34)
[2021-08-22 15:42] LABS: Basophils # (Auto) 0.1 K/mm3 (0.0-0.1); Basophils % (Auto) 0.6 % (0.0-1.8); Eosinophils % (Auto) 0.3 % (0.0-4.3); Hematocrit 44.1 % (35.5-45.6); Hemoglobin 15.2 gm/dl (11.8-15.2); Lymphocytes # (Auto) 0.8 K/mm3 (1.2-5.4); Lymphocytes % (Auto) 7.2 % (13.4-35.0); Mean Corpuscular HGB Conc 34 % (32-34); Mean Corpuscular Volume 102 fl (84-94); Monocytes # (Auto) 0.9 K/mm3 (0.0-0.8); Monocytes % (Auto) 8.3 % (0.0-7.3); Platelet Count 403 K/mm3 (140-440); Red Blood Count 4.31 M/mm3 (3.65-5.03); Red Cell Distribution Width 13.8 % (13.2-15.2)
[2021-08-22 16:05] LABS: INR 0.96 (0.87-1.13)
[2021-08-22 16:06] LABS: Alanine Aminotransferase 25 units/L (7-56); Albumin 3.7 g/dL (3.9-5); Blood Urea Nitrogen 14 mg/dL (9-20); Calcium 9.4 mg/dL (8.4-10.2); Hemolysis Index 280; Partial Thromboplastin Time 28.6 Sec. (24.2-36.6)
[2021-08-22 16:07] LABS: BUN/Creatinine Ratio 20
--- NOTE | 2021-08-22 16:08 | Emergency Department Report ---
ED General Adult HPI - General Chief complaint: Dyspnea/Respdistress Stated complaint: JOINT PAIN Time Seen by Provider: 08/22/21 14:50 Source: patient Mode of arrival: Ambulatory Limitations: No Limitations - History of Present Illness Initial comments: Patient is a 65-year-old male presents emergency room complaints of a productive cough for 2 months. He has associated yellow-green sputum with black specks present. He denies any hemoptysis. He has associated shortness of breath, chest pain, pain in his ribs, pain in his back, pleuritic pain. He denies any fever, vomiting, diarrhea, leg swelling, calf pain. He has a past medical history of lung cancer with lobectomy 6 years ago. He is a former heavy smoker and quit 6 years ago. No allergies to medications. Severity scale (0 -10): 10 - Related Data Home Medications Medication Instructions Recorded Confirmed Last Taken Docusate Sodium [Colace CAP] 100 mg PO BID 11/14/14 11/14/14 11/14/14 100 mg Esomeprazole Magnesium [NexIUM] 20 mg PO DAILY 11/14/14 11/14/14 11/14/14 20 mg Ferrous Sulfate [Ferosul] 325 mg PO DAILY 11/14/14 11/14/14 11/14/14 325 mg LORazepam 0.5 mg PO Q8HR PRN 11/14/14 11/14/14 11/14/14 0.5mg Previous Rx's Medication Instructions Recorded Last Taken Type Promethazine [Phenergan] 25 mg PO Q6H PRN #20 tablet 11/15/14 Unknown Rx Dicyclomine [Bentyl] 20 mg PO QID #30 tablet 03/03/16 Unknown Rx Promethazine [Phenergan TAB] 25 mg PO Q6HR PRN #20 tab 03/03/16 Unknown Rx Ondansetron [Zofran TAB] 4 mg PO Q8HR PRN #20 tablet 10/13/16 Unknown Rx Famotidine [Pepcid] 20 mg PO BID #60 tablet 11/09/19 Unknown Rx Gaby Root [Gaby] 250 mg PO QID PRN #30 capsule 11/09/19 Unknown Rx Metoclopramide [Reglan] 10 mg PO QID PRN #30 tablet 11/09/19 Unknown Rx Multivitamin with Folic Acid [Cvs 400 mcg PO QDAY #30 tablet 11/09/19 Unknown Rx One Daily Essential Tablet] Promethazine [Phenergan SUPPOS] 50 mg IA Q6H PRN #15 supp.rect 11/09/19 Unknown Rx Benzonatate [Tessalon Perles] 100 mg PO Q8HR PRN #12 capsule 08/22/21 Unknown Rx guaiFENesin ER [Mucinex ER] 600 mg PO Q12H #14 tablet.er 08/22/21 Unknown Rx levoFLOXacin [Levaquin] 750 mg PO QDAY #10 tablet 08/22/21 Unknown Rx traMADoL [Ultram 50 MG tab] 50 mg PO Q6HR PRN #12 tablet 08/22/21 Unknown Rx Allergies Allergy/AdvReac Type Severity Reaction Status Date / Time No Known Allergies Allergy Verified 08/22/21 13:16 ED Review of Systems ROS: Stated complaint: JOINT PAIN Other details as noted in HPI Comment: All other systems reviewed and negative ED Past Medical Hx - Past Medical History Hx of Cancer: Yes Additional medical history: stomach and left lung Cancer (unknown); surgery 1 year ago to remove cancer - Surgical History Additional Surgical History: partial left pneumonectomy, partial gastrectomy - Social History Smoking Status: Never Smoker Substance Use Type: Marijuana - Medications Home Medications: Home Medications Medication Instructions Recorded Confirmed Last Taken Type Docusate Sodium [Colace CAP] 100 mg PO BID 11/14/14 11/14/14 11/14/14 History 100 mg Esomeprazole Magnesium [NexIUM] 20 mg PO DAILY 11/14/14 11/14/14 11/14/14 History 20 mg Ferrous Sulfate [Ferosul] 325 mg PO DAILY 11/14/14 11/14/14 11/14/14 History 325 mg LORazepam 0.5 mg PO Q8HR PRN 11/14/14 11/14/14 11/14/14 History 0.5mg Promethazine [Phenergan] 25 mg PO Q6H PRN #20 tablet 11/15/14 Unknown Rx Dicyclomine [Bentyl] 20 mg PO QID #30 tablet 03/03/16 Unknown Rx Promethazine [Phenergan TAB] 25 mg PO Q6HR PRN #20 tab 03/03/16 Unknown Rx Ondansetron [Zofran TAB] 4 mg PO Q8HR PRN #20 tablet 10/13/16 Unknown Rx Famotidine [Pepcid] 20 mg PO BID #60 tablet 11/09/19 Unknown Rx Gaby Root [Gaby] 250 mg PO QID PRN #30 capsule 11/09/19 Unknown Rx Metoclopramide [Reglan] 10 mg PO QID PRN #30 tablet 11/09/19 Unknown Rx Multivitamin with Folic Acid [[facility] 400 mcg PO QDAY #30 tablet 11/09/19 Unknown Rx One Daily Essential Tablet] Promethazine [Phenergan SUPPOS] 50 mg IA Q6H PRN #15 supp.rect 11/09/19 Unknown Rx Benzonatate [Tessalon Perles] 100 mg PO Q8HR PRN #12 capsule 08/22/21 Unknown Rx guaiFENesin ER [Mucinex ER] 600 mg PO Q12H #14 tablet.er 08/22/21 Unknown Rx levoFLOXacin [Levaquin] 750 mg PO QDAY #10 tablet 08/22/21 Unknown Rx traMADoL [Ultram 50 MG tab] 50 mg PO Q6HR PRN #12 tablet 08/22/21 Unknown Rx ED Physical Exam - General Limitations: No Limitations General appearance: alert, in no apparent distress - Head Head exam: Present: atraumatic, normocephalic - Eye Eye exam: Present: normal appearance - ENT ENT exam: Present: mucous membranes moist - Respiratory Respiratory exam: Absent: respiratory distress, wheezes, rales, rhonchi, stridor, accessory muscle use, prolonged expiratory - Cardiovascular Cardiovascular Exam: Present: regular rate, normal rhythm - Neurological Exam Neurological exam: Present: alert, oriented X3 - Psychiatric Psychiatric exam: Present: normal affect, normal mood - Skin Skin exam: Present: warm, dry, intact ED Course Vital Signs 08/22/21 08/22/21 08/22/21 13:12 15:10 15:34 Temperature 98.3 F Pulse Rate 91 H 80 Respiratory 16 14 14 Rate Blood Pressure 121/77 Blood Pressure 144/83 [Left] O2 Sat by Pulse 97 100 Oximetry ED Medical Decision Making - Lab Data Result diagrams: 08/22/21 15:23 08/22/21 16:12 Lab Results 08/22/21 08/22/21 08/22/21 Range/Units 15:23 15:23 15:23 WBC 11.5 H (4.5-11.0) K/mm3 RBC 4.31 (3.65-5.03) M/mm3 Hgb 15.2 (11.8-15.2) gm/dl Hct 44.1 (35.5-45.6) % MCV 102 H (84-94) fl MCH 35 H (28-32) pg MCHC 34 (32-34) % RDW 13.8 (13.2-15.2) % Plt Count 403 (140-440) K/mm3 Lymph % (Auto) 7.2 L (13.4-35.0) % [place] % (Auto) 8.3 H (0.0-7.3) % Eos % (Auto) 0.3 (0.0-4.3) % Baso % (Auto) 0.6 (0.0-1.8) % Lymph # (Auto) 0.8 L (1.2-5.4) K/mm3 [place] # (Auto) 0.9 H (0.0-0.8) K/mm3 Eos # (Auto) 0.0 (0.0-0.4) K/mm3 Baso # (Auto) 0.1 (0.0-0.1) K/mm3 Seg Neutrophils % 83.6 H (40.0-70.0) % Seg Neutrophils # 9.6 H (1.8-7.7) K/mm3 PT 13.8 (12.2-14.9) Sec. INR 0.96 (0.87-1.13) APTT 28.6 (24.2-36.6) Sec. D-Dimer 1242.69 H (0-234) ng/mlDDU Sodium 139 (137-145) mmol/L Potassium 6.4 H* (3.6-5.0) mmol/L Chloride 99.5 (98-107) mmol/L Carbon Dioxide 25 (22-30) mmol/L Anion Gap 21 mmol/L BUN 14 (9-20) mg/dL Creatinine 0.7 L (0.8-1.3) mg/dL Estimated GFR > 60 ml/min BUN/Creatinine Ratio 20 % Glucose 88 (75-100) mg/dL Calcium 9.4 (8.4-10.2) mg/dL Total Bilirubin 0.50 (0.1-1.2) mg/dL AST 37 (5-40) units/L ALT 25 (7-56) units/L Alkaline Phosphatase 92 (35-129) units/L Troponin T < 0.010 (0.00-0.029) ng/mL Total Protein 7.0 (6.3-8.2) g/dL Albumin 3.7 L (3.9-5) g/dL Albumin/Globulin Ratio 1.1 % Urine Color (Yellow) Urine Turbidity (Clear) Urine pH (5.0-7.0) Ur Specific [place] (1.003-1.030) Urine Protein (Negative) mg/dL Urine Glucose (UA) (Negative) mg/dL Urine Ketones (Negative) mg/dL Urine Blood (Negative) Urine Nitrite (Negative) Urine Bilirubin (Negative) Urine Urobilinogen (<2.0) mg/dL Ur Leukocyte Esterase (Negative) Urine WBC (Auto) (0.0-6.0) /HPF Urine RBC (Auto) (0.0-6.0) /HPF Urine Mucus /HPF 08/22/21 08/22/21 Range/Units 16:12 Unknown WBC (4.5-11.0) K/mm3 RBC (3.65-5.03) M/mm3 Hgb (11.8-15.2) gm/dl Hct (35.5-45.6) % MCV (84-94) fl MCH (28-32) pg MCHC (32-34) % RDW (13.2-15.2) % Plt Count (140-440) K/mm3 Lymph % (Auto) (13.4-35.0) % [place] % (Auto) (0.0-7.3) % Eos % (Auto) (0.0-4.3) % Baso % (Auto) (0.0-1.8) % Lymph # (Auto) (1.2-5.4) K/mm3 [place] # (Auto) (0.0-0.8) K/mm3 Eos # (Auto) (0.0-0.4) K/mm3 Baso # (Auto) (0.0-0.1) K/mm3 Seg Neutrophils % (40.0-70.0) % Seg Neutrophils # (1.8-7.7) K/mm3 PT (12.2-14.9) Sec. INR (0.87-1.13) APTT (24.2-36.6) Sec. D-Dimer (0-234) ng/mlDDU Sodium (137-145) mmol/L Potassium 4.2 D (3.6-5.0) mmol/L Chloride (98-107) mmol/L Carbon Dioxide (22-30) mmol/L Anion Gap mmol/L BUN (9-20) mg/dL Creatinine (0.8-1.3) mg/dL Estimated GFR ml/min BUN/Creatinine Ratio % Glucose (75-100) mg/dL Calcium (8.4-10.2) mg/dL Total Bilirubin (0.1-1.2) mg/dL AST (5-40) units/L ALT (7-56) units/L Alkaline Phosphatase (35-129) units/L Troponin T (0.00-0.029) ng/mL Total Protein (6.3-8.2) g/dL Albumin (3.9-5) g/dL Albumin/Globulin Ratio % Urine Color Yellow (Yellow) Urine Turbidity Clear (Clear) Urine pH 6.0 (5.0-7.0) Ur Specific [place] 1.023 (1.003-1.030) Urine Protein <15 mg/dl (Negative) mg/dL Urine Glucose (UA) Neg (Negative) mg/dL Urine Ketones Neg (Negative) mg/dL Urine Blood Neg (Negative) Urine Nitrite Neg (Negative) Urine Bilirubin Neg (Negative) Urine Urobilinogen 4.0 (<2.0) mg/dL Ur Leukocyte Esterase Neg (Negative) Urine WBC (Auto) 2.0 (0.0-6.0) /HPF Urine RBC (Auto) 9.0 (0.0-6.0) /HPF Urine Mucus 2+ /HPF - EKG Data EKG shows normal: sinus rhythm, axis, intervals, ST-T waves Rate: normal - EKG Data 08/22/21 21:10 no STEMI LVH - Radiology Data Radiology results: report reviewed Ordering Physician: NEGRITO NEW Date of Service: 08/22/21 Procedure(s): XR chest routine 2V Accession Number(s): [id number] cc: NEGRITO NEW Fluoro Time In Minutes: XR chest routine 2V INDICATION / CLINICAL INFORMATION: SOB, cough, CP. COMPARISON: 11/09/2019 FINDINGS: SUPPORT DEVICES: None. HEART /PULMONARY VASCULATURE: No significant abnormality. LUNGS / PLEURA: Severe bullous disease with postsurgical changes of the right upper hemithorax. Patchy airspace consolidation of the left lower lobe. No pneumothorax. ADDITIONAL FINDINGS: No significant additional findings. IMPRESSION: Left lower lobe pneumonia. Signer Name: Ledy Batres MD Signed: 08/22/2021 3:23 PM Workstation Name: [id number] Transcribed By: LEONIE Dictated By: LEDY BATRES MD Electronically Authenticated By: LEDY BATRES MD Signed Date/Time: 08/22/21 152 DD/ 21 TD/TT: Ordering Physician: NEGRITO NEW Date of Service: 08/22/21 Procedure(s): CT angio chest Accession Number(s): [id number] cc: NEGRITO NEW CTA CHEST WITH IV CONTRAST INDICATION: SOB, CP, pleuritic pain, elevated d-dimer, hx CA. TECHNIQUE: Axial CT images were obtained through the chest after injection of IV contrast. 3 plane MIP reconstructions were produced. All CT scans at this location are performed using CT dose reduction for ALARA by means of automated exposure control. COMPARISON: CTA 11/09/2019. FINDINGS: Pulmonary Arteries: No pulmonary emboli. Thoracic Aorta: No acute abnormality. Heart: Normal. Lungs: Advanced COPD changes are noted with large bullae in the right apex. There is dense consolidation in the left lower lung. Mild airspace opacities are seen in the peribronchovascular right lower lobe. Pleura: No pleural effusion. No pneumothorax. Lymph Nodes: Mildly enlarged subcarinal nodes may be reactive. Additional Findings: None. Upper Abdomen: No acute findings. Skeletal Structures: No significant osseous abnormality. IMPRESSION: 1. No CT evidence for pulmonary embolism. 2. Bilateral pneumonia primarily in the left lower lung. Mild subcarinal adenopathy may be reactive. 3. Advanced COPD changes similar to the prior from 11/09/1999. Signer Name: Diaz Salinas MD Signed: 08/22/2021 4:58 PM Workstation Name: [id number] Transcribed By: BIMAL Dictated By: Diaz Salinas MD Electronically Authenticated By: Diaz Salinas MD Signed Date/Time: 08/22/211657 DD/ 53 TD/TT: - Medical Decision Making Patient is a 65-year-old male presents emergency room complaints of a productive cough for 2 months. He has associated yellow-green sputum with black specks present. He denies any hemoptysis. He has associated shortness of breath, chest pain, pain in his ribs, pain in his back, pleuritic pain. He denies any fever, vomiting, diarrhea, leg swelling, calf pain. He has a past medical history of lung cancer with lobectomy 6 years ago. He is a former heavy smoker and quit 6 years ago. No allergies to medications. Vitals are normal. Breath sounds are clear bilaterally. Labs with mild leukocytosis at 11.5, D-dimer is elevated. Initial labs with hyperkalemia, sample was hemolyzed, recent potassium and it is normal. UA is within normal limits. Chest x-ray Left lower lobe pneumonia. CTA chest: 1. No CT evidence for pulmonary embolism. 2. Bilateral pneumonia primarily in the left lower lung. Mild subcarinal adenopathy may be reactive. 3. Advanced COPD changes similar to the prior from 11/09/1999. Patient given 2 g ceftriaxone while in the emergency department. Discussed all results with patient. Discussed the importance of outpatient primary care follow-up and patient was given his CT report. Advised patient please take medication as prescribed. Increase your fluid intake. Follow-up with your primary care doctor. Return to emergency room for any new or worsening symptoms. Critical care attestation.: If time is entered above; I have spent that time in minutes in the direct care of this critically ill patient, excluding procedure time. ED Disposition Clinical Impression: Lymphadenopathy Pneumonia Qualifiers: Pneumonia type: due to unspecified organism Laterality: bilateral Lung locati on: unspecified part of lung Qualified Code(s): J18.9 - Pneumonia, unspecified organism COPD (chronic obstructive pulmonary disease) Qualifiers: COPD type: unspecified COPD Qualified Code(s): J44.9 - Chronic obstructive pulmonary disease, unspecified Disposition: HOME / SELF CARE / HOMELESS Is pt being admited?: No Does the pt Need Aspirin: No Condition: Stable Instructions: Chronic Obstructive Pulmonary Disease, [id number], Community- Acquired Pneumonia, Adult, Chronic Obstructive Pulmonary Disease (ED), Bacterial Pneumonia (ED) Additional Instructions: please take medication as prescribed. Increase your fluid intake. Follow-up with your primary care doctor. Return to emergency room for any new or worsening symptoms. Prescriptions: levoFLOXacin [Levaquin] 750 mg PO QDAY #10 tablet guaiFENesin ER [Mucinex ER] 600 mg PO Q12H #14 tablet.er Benzonatate [Tessalon Perles] 100 mg PO Q8HR PRN #12 capsule PRN Reason: cough traMADoL [Ultram 50 MG tab] 50 mg PO Q6HR PRN #12 tablet PRN Reason: Pain , Severe (7-10) Referrals: PRIMARY CARE, [Primary Care Provider] - 3-5 Days SANDY REY MD [Staff Physician] - 3-5 Days [facility] [Provider Group] - 3-5 Days Forms: Work/School Release Form(ED) Time of Disposition: 17:05 Print Language: MAURITIAN
--- NOTE | 2021-08-22 17:02 | Cat Scan Report ---
CTA CHEST WITH IV CONTRAST INDICATION: SOB, CP, pleuritic pain, elevated d-dimer, hx CA. TECHNIQUE: Axial CT images were obtained through the chest after injection of IV contrast. 3 plane MIP reconstru ctions were produced. All CT scans at this location are performed using CT dose reduction for ALARA b y means of automated exposure control. COMPARISON: CTA 11/09/2019. FINDINGS: Pulmonary Arteries: No pulmonary emboli. Thoracic Aorta: No acute abnormality. Heart: Normal. Lungs: Advanced COPD changes are noted with large bullae in the right apex. There is dense consolidat ion in the left lower lung. Mild airspace opacities are seen in the peribronchovascular right lower l obe. Pleura: No pleural effusion. No pneumothorax. Lymph Nodes: Mildly enlarged subcarinal nodes may be reactive. Additional Findings: None. Upper Abdomen: No acute findings. Skeletal Structures: No significant osseous abnormality. IMPRESSION: 1. No CT evidence for pulmonary embolism. 2. Bilateral pneumonia primarily in the left lower lung. Mild subcarinal adenopathy may be reactive. 3. Advanced COPD changes similar to the prior from 11/09/1999. Signer Name: Diaz Salinas MD Signed: 08/22/2021 4:58 PM Workstation Name: [email or web address]
--- NOTE | 2021-08-23 17:31 | Electrocardiograph Report ---
[facility] Test Date: 2021-08-22 Test Time: 16:18:12 Pat Name: EDER GIMENEZ Department: Room: Gender: M Medical Surgical Tech: ROBERTO CARLOS : 1955 Requested By: NATASHA PARADA Order Number: [id number] Reading MD: Luiz Blanton Measurements Intervals [place] Rate: 73 P: 83 VT: 129 QRS: 70 QRSD: 81 T: 64 QT: 387 QTc: 428 Interpretive Statements Sinus rhythm Left atrial enlargement No previous ECG available for comparison Electronically Signed On 08-23-2021 17:31:19 EST by Luiz Blanton
== END 2021-08-22 17:27 | disposition home or self-care (01) ==
LOC: ED 11:59
DX: J18.9 Pneumonia, unspecified organism (principal); J44.9 Chronic obstructive pulmonary disease, unspecified; R79.1 Abnormal coagulation profile; R59.1 Generalized enlarged lymph nodes; F12.90 Cannabis use, unspecified, uncomplicated; Z98.890 Other specified postprocedural states; Z79.899 Other long term (current) drug therapy
CPT/HCPCS: 36415; 71046; 71275; 80053; 81001; 84132; 84484; 85025; 85379; 85610; 85730; 93005; 96365; 99284; J0696; Q9967